=== PATIENT | female | born 1975 | race African-American/Black ===

== ENCOUNTER 2016-09-14 10:03 | Emergency (ER) | payer OTHER ==
[~2016-09-14] VITALS: Ht 162.6 cm; Wt 89.0 kg
[~2016-09-14 10:03] MED LIST: METH750T2 PO; TRAM50 PO
[2016-09-14 10:27] VITALS: BP 133/84; PULSE 62; RESP 16; TEMP 98.6; O2SAT 100
[2016-09-14] MEDS ORDERED: TIZA2CAP3 PO (11:08)
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
[2016-09-14] MEDS ORDERED: ORPHENADRINE INJ 60 MG/2 ML AMP IM ONE (11:30)
[2016-09-14] MEDS ORDERED: KETOROLAC TROMETHAMINE 60 MG/2 ML (IM) VIAL IM ONE (11:30)
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
[2016-09-14] MEDS ORDERED: DICL50TA PO (12:38)
== END 2016-09-14 12:47 | disposition home or self-care (01) ==
LOC: PHED 10:03 → PHEFT 12:47
DX: T14.8 Other injury of unspecified body region (principal); M54.2 Cervicalgia; M54.5 Low back pain; V49.40XA Driver injured in collision with unspecified motor vehicles in traffic accident, initial encounter
CPT/HCPCS: 72100; 96372; 99283; J1885; J2360

== ENCOUNTER 2017-03-17 10:42 | Emergency (ER) | payer OTHER ==
[~2017-03-17] VITALS: Ht 162.6 cm; Wt 93.0 kg
[~2017-03-17 10:42] MED LIST changes: +DICL50TA PO; -METH750T2 PO; +TIZA2CAP3 PO; -TRAM50 PO
[2017-03-17 10:43] VITALS: BP 114/72; PULSE 65; RESP 16; TEMP 97.7; O2SAT 98
[2017-03-17 11:33] LABS: BLOOD, URINE NEG (NEG); COMMENT (UR) CULT NOT INDICATED; CULTURE IF INDICATED CULT NOT INDICATED; GLUCOSE,URINE NEG (NEG); HYALINE CAST, URINE 2 /lpf (RARE); KETONE, URINE NEG (NEG); MUCUS URINE FEW /lpf (OCC); NITRITE,URINE NEG (NEG); PH, URINE 5.5 (5.0-8.5); SQUAMOUS EPITHELIAL CELL URINE 7 /hpf (0-5); URINE COLOR YELLOW (YELLW/STRAW)
--- NOTE | 2017-03-17 11:33 | PD ---
HPI Chief Complaint: Flank/Kidney Pain Time Seen by Provider: 11:26 Travel History International Travel<30 days: No Contact w/Intl Traveler<30days: No Traveled to known affect area: No History of Present Illness HPI The patient was seen and examined in the presence of the nurse. This patient complains of low back pain. She has chronic low back pain and has frequent pain spells of it. No recent injury or fever or urinary complaint. Denies hematuria. Severity is moderate. No alleviating factors. PFSH Past Medical History Hx Anticoagulant Therapy: No Asthma: Yes Blood Disorders: No Anxiety: No Depression: No Heart Rhythm Problems: No Cancer: No Cardiac Catheterization: No Cardiovascular Problems: No High Cholesterol: Yes Chemotherapy: No Chest Pain: Yes Congestive Heart Failure: No COPD: No Cerebrovascular Accident: No Diabetes: No Diminished Hearing: No Endocrine: Yes Gastrointestinal Disorders: Yes (BARIATRIC SX) Genitourinary: Yes (KIDNEY STONES) Hepatitis: No Hiatal Hernia: No Hypertension: Yes Immune Disorder: No Musculoskeletal: No Neurologic: No Psychiatric: No Reproductive: Yes (PELVIC PAIN) Respiratory: No Immunizations Current: No Radiation Therapy: No Sleep Apnea: No Thyroid Disease: No ?: Not Menopausal: Yes : 2 Para: 2 Miscarriage: 0 : 0 Dilation and Curettage (D&C): Yes Past Surgical History Abdominal Surgery: Yes (GASTRIC BYPASS, ) AICD: No Appendectomy: Yes (2004) Section: Yes (X1) Coronary Artery Bypass Graft: No Gynecologic Surgery: Yes (C SECTION, LAPAROSCOPY/ ABLATION) Hysterectomy: Yes Joint Replacement: No Pacemaker: No Other Surgery: Yes (LASH) Social History Alcohol Use: Yes (OCASSIONALLY) Tobacco Use: No Substance Use: No Allergies-Medications (Allergen,Severity, Reaction): Coded Allergies: No Known Allergies (Verified , 03/17/17) Reported Meds & Prescriptions Reported Meds & Active Scripts Active No Active Prescriptions or Reported Medications Review of Systems General / Constitutional: No: Fever Eyes: No: Visual changes HENT: No: Headaches Cardiovascular: No: Chest Pain or Discomfort Respiratory: No: Shortness of Breath Gastrointestinal: No: Abdominal Pain Genitourinary: No: Dysuria Musculoskeletal: Positive: Pain Skin: No Rash Neurologic: No: Weakness Psychiatric: No: Depression Endocrine: No: Polydipsia Hematologic/Lymphatic: No: Easy Bruising Physical Exam Narrative GENERAL: Well-nourished, well-developed patient with low back pain SKIN: Focused skin assessment reveals no rash and nodules. Skin is Warm and dry. HEAD: Atraumatic. Normocephalic. EYES: Pupils equal and round. No scleral icterus. No injection or drainage. ENT: No nasal bleeding or discharge. Mucous membranes pink and moist. NECK: Trachea midline. No JVD. CARDIOVASCULAR: Regular rate and rhythm. No murmur appreciated. RESPIRATORY: No accessory muscle use. Clear to auscultation. Breath sounds equal bilaterally. GASTROINTESTINAL: Abdomen soft, non-tender, nondistended. Hepatic and splenic margins not palpable. MUSCULOSKELETAL: No obvious deformities. No clubbing. No cyanosis. No edema. Patient has some low midline back tenderness and tenderness in the musculature to either side of the spine. No CVA tenderness. NEUROLOGICAL: Awake and alert. No obvious cranial nerve deficits. Motor grossly within normal limits. Normal speech. PSYCHIATRIC: Appropriate mood and affect; insight and judgment normal. Data Data Last Documented VS Vital Signs Date Time Temp Pulse Resp B/P (MAP) Pulse Ox O2 Delivery O2 Flow Rate FiO2 03/17/17 10:43 97.7 65 16 114/72 (86) 98 Room Air Orders Orders Urinalysis - C+S If Indicated (03/17/17 10:55) Complete Blood Count With Diff (03/17/17 10:55) Comprehensive Metabolic Panel (03/17/17 10:55) Labs Laboratory Tests Test 03/17/17 11:10 White Blood Count 7.0 TH/MM3 Red Blood Count 4.41 MIL/MM3 Hemoglobin 13.3 GM/DL Hematocrit 41.1 % Mean Corpuscular Volume 93.2 FL Mean Corpuscular Hemoglobin 30.2 PG Mean Corpuscular Hemoglobin Concent 32.4 % Red Cell Distribution Width 14.0 % Platelet Count 274 TH/MM3 Mean Platelet Volume 8.2 FL Neutrophils (%) (Auto) 61.8 % Lymphocytes (%) (Auto) 29.8 % Monocytes (%) (Auto) 7.2 % Eosinophils (%) (Auto) 0.5 % Basophils (%) (Auto) 0.7 % Neutrophils # (Auto) 4.3 TH/MM3 Lymphocytes # (Auto) 2.1 TH/MM3 Monocytes # (Auto) 0.5 TH/MM3 Eosinophils # (Auto) 0.0 TH/MM3 Basophils # (Auto) 0.0 TH/MM3 CBC Comment DIFF FINAL Differential Comment Urine Color YELLOW Urine Turbidity HAZY Urine pH 5.5 Urine Specific [place] 1.040 Urine Protein TRACE mg/dL Urine Glucose (UA) NEG mg/dL Urine Ketones NEG mg/dL Urine Occult Blood NEG Urine Nitrite NEG Urine Bilirubin NEG Urine Urobilinogen 2.0 MG/DL Urine Leukocyte Esterase TRACE Urine RBC 2 /hpf Urine WBC 2 /hpf Urine Squamous Epithelial Cells 7 /hpf Urine Hyaline Casts 2 /lpf Urine Mucus FEW /lpf Microscopic Urinalysis Comment CULT NOT INDICATED Blood Urea Nitrogen 22 MG/DL Creatinine 0.52 MG/DL Random Glucose 76 MG/DL Total Protein 7.0 GM/DL Albumin 3.3 GM/DL Calcium Level 8.9 MG/DL Alkaline Phosphatase 44 U/L Aspartate Amino Transf (AST/SGOT) 11 U/L Alanine Aminotransferase (ALT/SGPT) 18 U/L Total Bilirubin 0.6 MG/DL Sodium Level 144 MEQ/L Potassium Level 4.0 MEQ/L Chloride Level 107 MEQ/L Carbon Dioxide Level 30.1 MEQ/L Anion Gap 7 MEQ/L Estimat Glomerular Filtration Rate 156 ML/MIN [facility] Medical Decision Making Medical Screen Exam Complete: Yes Emergency Medical Condition: Yes Medical Record Reviewed: Yes Differential Diagnosis Exacerbation of chronic low back pain, pyelonephritis, lumbar strain, sciatica Narrative Course I have reviewed the patient's electronic medical record. Patient is a frequent visitor to the ER for pain complaints IV placed CBC is normal Metabolic profile is normal LFTs are normal Urinalysis is clean Work appear negative. Etiology of her low back pain is unclear but I suspect musculoskeletal cause It's not consistent with renal stone Tramadol written for short term relief and primary care follow-up recommended Diagnosis Primary Impression: Low back pain Qualified Codes: M54.5 - Low back pain Additional Impression: Flank pain, acute Additional Instructions: The patient was advised to follow up with their physician and return if they worsen. The patient was warned about potential sedation for the medications they will receive on prescription. Med/Other Pt SpecificInfo: Prescription(s) given Scripts Tramadol (Tramadol) 50 Mg Tab 50 MG PO Q6H Y for PAIN, #20 TAB 0 Refills Prov: Julio Rodas MD 8/22/17 Disposition: 01 DISCHARGE HOME Condition: Stable Julio Rodas MD Mar 17, 2017 11:33
[2017-03-17 11:40] LABS: AUTOMATED NEUTROPHIL # 4.3 TH/MM3 (1.8-7.7); BASOPHIL % 0.7 % (0.0-2.0); EOSINOPHIL % 0.5 % (0.0-4.0); HEMATOCRIT 41.1 % (35.0-46.0); HEMO FLAGS DIFF FINAL; LYMPH % 29.8 % (9.0-44.0); LYMPHOCYTE # 2.1 TH/MM3 (1.0-4.8); MEAN CELL VOLUME 93.2 FL (80.0-100.0); MEAN CORPUSCULAR HEMOGLOBIN 30.2 PG (27.0-34.0); MEAN CORPUSCULAR HGB CONC 32.4 % (32.0-36.0); MONO % 7.2 % (0.0-8.0); NEUT % 61.8 % (16.0-70.0); PLATELET COUNT 274 TH/MM3 (150-450); RED BLOOD COUNT 4.41 MIL/MM3 (4.00-5.30)
[2017-03-17 11:48] LABS: ANION GAP 7 MEQ/L (5-15); AST (GOT) 11 U/L (15-37); BICARBONATE 30.1 MEQ/L (21.0-32.0); BLOOD UREA NITROGEN 22 MG/DL (7-18); CHLORIDE 107 MEQ/L (98-107); GLOMERULAR FILTRATION RATE 156 ML/MIN (>89); SODIUM (NA) 144 MEQ/L (136-145)
[2017-03-17 11:51] LABS: ALKALINE PHOSPHATASE 44 U/L (45-117); ALT (GPT) 18 U/L (10-53); TOTAL BILIRUBIN ADULT 0.6 MG/DL (0.2-1.0)
[2017-03-17] MEDS ORDERED: TRAM50TA PO (12:50)
== END 2017-03-17 13:08 | disposition home or self-care (01) ==
LOC: NEPD 10:42
DX: M54.5 Low back pain (principal); R10.30 Lower abdominal pain, unspecified; J45.909 Unspecified asthma, uncomplicated; E78.00 Pure hypercholesterolemia, unspecified; Z98.84 Bariatric surgery status
CPT/HCPCS: 80053; 81001; 85025; 99283

== ENCOUNTER 2017-07-24 11:20 | Observation (INO) | payer OTHER ==
[~2017-07-24] VITALS: Ht 162.6 cm; Wt 95.5 kg
[~2017-07-24 11:20] MED LIST changes: -DICL50TA PO; -TIZA2CAP3 PO; +TRAM50TA PO
[2017-07-24 11:22] VITALS: BP 164/91; PULSE 65; RESP 18; TEMP 98.1; O2SAT 100
[2017-07-24 11:54] LABS: AUTOMATED NEUTROPHIL # 3.6 TH/MM3 (1.8-7.7); BASOPHIL % 0.7 % (0.0-2.0); EOSINOPHIL % 0.3 % (0.0-4.0); HEMATOCRIT 41.4 % (35.0-46.0); HEMOGLOBIN 13.6 GM/DL (11.6-15.3); LYMPHOCYTE # 1.6 TH/MM3 (1.0-4.8); MEAN CELL VOLUME 93.6 FL (80.0-100.0); MEAN CORPUSCULAR HEMOGLOBIN 30.8 PG (27.0-34.0); MEAN CORPUSCULAR HGB CONC 32.9 % (32.0-36.0); MONO % 5.6 % (0.0-8.0); MONOCYTE # 0.3 TH/MM3 (0-0.9); NEUT % 65.4 % (16.0-70.0); PLATELET COUNT 240 TH/MM3 (150-450); RED BLOOD COUNT 4.42 MIL/MM3 (4.00-5.30); RED CELL DISTRIBUTION WIDTH 13.9 % (11.6-17.2); WHITE BLOOD COUNT 5.5 TH/MM3 (4.0-11.0)
[2017-07-24 12:01] LABS: INTERNATIONAL NORMALIZED RATIO 1.1 RATIO; PROTHROMBIN TIME - PATIENT 11.1 SEC (9.8-11.6)
[2017-07-24 12:08] LABS: ALBUMIN 3.4 GM/DL (3.4-5.0); ALT (GPT) 20 U/L (10-53); AST (GOT) 15 U/L (15-37); BLOOD UREA NITROGEN 16 MG/DL (7-18); CALCIUM 8.5 MG/DL (8.5-10.1); CHLORIDE 108 MEQ/L (98-107); CREATININE 0.57 MG/DL (0.50-1.00); GLOMERULAR FILTRATION RATE 141 ML/MIN (>89); GLUCOSE,RANDOM 82 MG/DL (74-106); SODIUM (NA) 142 MEQ/L (136-145)
[2017-07-24 12:12] LABS: ALKALINE PHOSPHATASE 46 U/L (45-117); TOTAL BILIRUBIN ADULT 0.7 MG/DL (0.2-1.0); TOTAL PROTEIN 7.4 GM/DL (6.4-8.2); TROPONIN I LESS THAN 0.02 NG/ML (0.02-0.05)
--- NOTE | 2017-07-24 12:22 | RADRPT ---
EXAM DATE/TIME: 07/24/2017 11:52 [facility] COMPARISON: No previous studies available for comparison. INDICATIONS : Chest pain. MEDICAL HISTORY : None. SURGICAL HISTORY : Gastric bypass. ENCOUNTER: Initial ACUITY: 1 day PAIN SCORE: 7/10 LOCATION: Left upper chest FINDINGS: PA and lateral views of the chest demonstrate the lungs to be symmetrically aerated without evidence of mass, infiltrate or effusion. The cardiomediastinal contours are unremarkable. Osseous structure s are intact. CONCLUSION: 1. No acute cardiopulmonary disease. Mark Slater MD on July 24, 2017 at 12:21 Board Certified Radiologist. This report was verified electronically.
[2017-07-24 13:20] VITALS: BP 132/80; PULSE 59; RESP 18; O2SAT 100
[2017-07-24] MEDS ORDERED: NITROGLYCERIN 0.4 MG SL 25 TABS/BTL SL ONE (13:30)
[2017-07-24] MEDS ORDERED: ASPIRIN 325 MG TAB PO ONE (13:30)
[2017-07-24] MEDS ORDERED: GABA300C5 PO (13:49)
[2017-07-24 14:00] VITALS: BP 158/76; PULSE 68; RESP 16; O2SAT 99
--- NOTE | 2017-07-24 14:08 | PD ---
HPI Chief Complaint: Chest Pain Time Seen by Provider: 13:07 Travel History International Travel<30 days: No Contact w/Intl Traveler<30days: No Traveled to known affect area: No History of Present Illness HPI 41-year-old female that presents to the ED for evaluation of chest pain. Patient states that she's been having left-sided chest pain since 9:00 this morning. Per patient is constant and doesn't go away. She denies any history of heart disease in herself or her family. She does have an old history of smoking as well as hypertension and diabetes which was for the most part improved after having bariatric surgery. This happened 2012. She states that she's been having a lot of stress at work and she doesn't know this is related. Per patient the pain is sharp and pressure-like. Pain per patient is 7 out of 10. She didn't take anything for this. She does take naproxen OTC as needed. She denies any abdominal pain. No nausea or vomiting. No bowel movement or urinary issues. She states that she had a stress test sometime at the beginning of the year and she states that the told her that she was negative. She has not had any follow-up since. She has no allergies to medication. No other medical issues at this time. No fevers chills or sweats. No cough or runny nose. PFSH Past Medical History Hx Anticoagulant Therapy: No Asthma: Yes Blood Disorders: No Anxiety: No Depression: No Heart Rhythm Problems: No Cancer: No Cardiac Catheterization: No Cardiovascular Problems: No High Cholesterol: Yes Chemotherapy: No Chest Pain: Yes Congestive Heart Failure: No COPD: No Cerebrovascular Accident: No Diabetes: No Diminished Hearing: No Endocrine: Yes Gastrointestinal Disorders: Yes (BARIATRIC SX) Genitourinary: Yes (KIDNEY STONES) Hepatitis: No Hiatal Hernia: No Hypertension: Yes Immune Disorder: No Musculoskeletal: No Neurologic: No Psychiatric: No Reproductive: Yes Respiratory: No Immunizations Current: No Radiation Therapy: No Sleep Apnea: No Thyroid Disease: No ?: Not Menopausal: Yes : 2 Para: 2 Miscarriage: 0 : 0 Dilation and Curettage (D&C): Yes Past Surgical History Abdominal Surgery: Yes (GASTRIC BYPASS, ) AICD: No Appendectomy: Yes (2004) Section: Yes (X1) Coronary Artery Bypass Graft: No Gynecologic Surgery: Yes (C SECTION, LAPAROSCOPY/ ABLATION) Hysterectomy: Yes Joint Replacement: No Pacemaker: No Other Surgery: Yes (LASH) Social History Alcohol Use: Yes (OCASSIONALLY) Tobacco Use: Yes (cigars ) Substance Use: No Allergies-Medications (Allergen,Severity, Reaction): Coded Allergies: No Known Allergies (Verified , 03/17/17) Reported Meds & Prescriptions Reported Meds & Active Scripts Active Reported Gabapentin 300 Mg Cap 300 Mg PO HS Review of Systems Except as stated in HPI: all other systems reviewed are Neg Physical Exam Narrative GENERAL: SKIN: Warm and dry. HEAD: Atraumatic. Normocephalic. EYES: Pupils equal and round. No scleral icterus. No injection or drainage. ENT: No nasal bleeding or discharge. Mucous membranes pink and moist. Tongue is midline. No uvula deviation. NECK: Trachea midline. No JVD. CARDIOVASCULAR: Regular rate and rhythm. No murmurs, S3, S4. Chest pain is not reproducible with touch. RESPIRATORY: No accessory muscle use. Clear to auscultation. Breath sounds equal bilaterally. GASTROINTESTINAL: Abdomen soft, non-tender, nondistended. Hepatic and splenic margins not palpable. MUSCULOSKELETAL: Extremities without clubbing, cyanosis, or edema. No obvious deformities. Full range of motion of the upper and lower extremities bilaterally. 2+ pulses bilaterally. NEUROLOGICAL: Awake and alert. No obvious cranial nerve deficits. Motor grossly within normal limits. Five out of 5 muscle strength in the arms and legs. Normal speech. PSYCHIATRIC: Appropriate mood and affect; insight and judgment normal. Data Data Last Documented VS Vital Signs Date Time Temp Pulse Resp B/P (MAP) Pulse Ox O2 Delivery O2 Flow Rate FiO2 07/24/17 14:00 68 16 158/76 (103) 99 Room Air 07/24/17 11:22 98.1 Orders Orders Electrocardiogram (07/24/17 11:27) Ckmb (Isoenzyme) Profile (07/24/17 11:27) Complete Blood Count With Diff (07/24/17 11:27) Comprehensive Metabolic Panel (07/24/17 11:27) Magnesium (Mg) (07/24/17 11:27) Prothrombin Time / Inr (Pt) (07/24/17 11:27) Act Partial Throm Time (Ptt) (07/24/17 11:27) Troponin I (07/24/17 11:27) Chest, Pa & Lat (07/24/17 11:27) Lipase (07/24/17 13:23) Aspirin (Aspirin) (07/24/17 13:30) Nitroglycerin Sl (Nitrostat Sl) (07/24/17 13:30) Admit Order (Ed Use Only) (07/24/17 14:02) Labs Laboratory Tests Test 07/24/17 11:41 White Blood Count 5.5 TH/MM3 Red Blood Count 4.42 MIL/MM3 Hemoglobin 13.6 GM/DL Hematocrit 41.4 % Mean Corpuscular Volume 93.6 FL Mean Corpuscular Hemoglobin 30.8 PG Mean Corpuscular Hemoglobin Concent 32.9 % Red Cell Distribution Width 13.9 % Platelet Count 240 TH/MM3 Mean Platelet Volume 8.0 FL Neutrophils (%) (Auto) 65.4 % Lymphocytes (%) (Auto) 28.0 % Monocytes (%) (Auto) 5.6 % Eosinophils (%) (Auto) 0.3 % Basophils (%) (Auto) 0.7 % Neutrophils # (Auto) 3.6 TH/MM3 Lymphocytes # (Auto) 1.6 TH/MM3 Monocytes # (Auto) 0.3 TH/MM3 Eosinophils # (Auto) 0.0 TH/MM3 Basophils # (Auto) 0.0 TH/MM3 CBC Comment DIFF FINAL Differential Comment Prothrombin Time 11.1 SEC Prothromb Time International Ratio 1.1 RATIO Activated Partial Thromboplast Time 26.7 SEC Blood Urea Nitrogen 16 MG/DL Creatinine 0.57 MG/DL Random Glucose 82 MG/DL Total Protein 7.4 GM/DL Albumin 3.4 GM/DL Calcium Level 8.5 MG/DL Magnesium Level 2.0 MG/DL Alkaline Phosphatase 46 U/L Aspartate Amino Transf (AST/SGOT) 15 U/L Alanine Aminotransferase (ALT/SGPT) 20 U/L Total Bilirubin 0.7 MG/DL Sodium Level 142 MEQ/L Potassium Level 3.7 MEQ/L Chloride Level 108 MEQ/L Carbon Dioxide Level 26.0 MEQ/L Anion Gap 8 MEQ/L Estimat Glomerular Filtration Rate 141 ML/MIN Total Creatine Kinase 83 U/L Troponin I LESS THAN 0.02 NG/ML MDM Medical Decision Making Medical Screen Exam Complete: Yes Emergency Medical Condition: Yes Medical Record Reviewed: Yes Interpretation(s) CBC & BMP Diagram 07/24/17 11:41 Total Protein 7.4, Albumin 3.4, Calcium Level 8.5, Magnesium Level 2.0, Alkaline Phosphatase 46, Aspartate Amino Transf (AST/SGOT) 15, Alanine Aminotransferase (ALT/SGPT) 20, Total Bilirubin 0.7 Last Impressions Chest X-Ray 07/24/17 1127 Signed Impressions: Service Date/Time: Monday, July 24, 2017 11:52 - CONCLUSION: 1. No acute cardiopulmonary disease. Mark Slater MD Troponin and CK-MB negative. EKG showed sinus rhythm with no sign of acute ischemia and arrhythmia read by me and attending. Patient does appear to have incomplete RBBB. Differential Diagnosis Chest pain versus atypical chest pain versus ACS versus electrolyte abnormality versus angina versus anxiety Narrative Course 41-year-old female that presents to the ED for evaluation of chest pain. Patient was properly examined and was found to have signs and symptoms concerning for cardiac chest pain. Patient does not have many risk factors but she was given aspirin and nitroglycerin with relief of symptoms. Patient does have a history of old smoking as well as a history of hypertension and diabetes which has been under control since having a bariatric procedure. She does continue to complain of chest pain. Do not have any etiology for the chest pain. She does not appear to have any risk factors for PE including no recent travel or recent surgeries. Patient is not tachycardic and chest pain is not reproducible with touch. At this time I recommend admission for the chest pain center. This was discussed with my attending Dr. Renee who was made aware of findings risk factors and agrees with the patient admission to the chest pain center. Patient agrees with plan. Patient was admitted to the chest pain center. Diagnosis Primary Impression: Chest pain in adult Admitting Information Admitting Physician Requests: Observation Miki Acosta Jul 24, 2017 14:08
[2017-07-24] MEDS ORDERED: ACETAMINOPHEN 325 MG TAB PO ONE (14:30)
[2017-07-24] MEDS ORDERED: NITROGLYCERIN 0.4 MG SL 25 TABS/BTL SL PRN (14:45)
[2017-07-24] MEDS ORDERED: ONDANSETRON HCL 4 MG/2 ML VIAL IV PUSH PRN (14:45)
[2017-07-24] MEDS ORDERED: ACETAMINOPHEN 500 MG CPLT PO PRN (14:45)
[2017-07-24] MEDS ORDERED: SODIUM CHLORIDE 0.9% FLUSH 10 ML FLUSH IV FLUSH PRN (14:45)
[2017-07-24 15:00] VITALS: BP 123/79; PULSE 68; RESP 16; TEMP 97.8; O2SAT 100
[2017-07-24 15:50] VITALS: RESP 16
[2017-07-24 16:09] LABS: TROPONIN I LESS THAN 0.02 NG/ML (0.02-0.05)
[2017-07-24] MEDS ORDERED: SODIUM CHLORIDE 0.9% FLUSH 10 ML FLUSH IV FLUSH SCH (21:00)
[2017-07-25] MEDS ORDERED: ASPIRIN 325 MG TAB PO SCH (09:00)
--- NOTE | 2017-07-26 13:20 | EKG ---
Date Performed: 07/24/2017 Time Performed: 15:05:50 PTAGE: 41 years EKG: SINUS BRADYCARDIA INCOMPLETE RIGHT BUNDLE BRANCH BLOCK BORDERLINE ECG NO SIG CHANGE PREVIOUS TRACING : 07/24/2017 11.34 DOCTOR: Mitchel Sutton Interpretating Date/Time 07/26/2017 13:18:47
--- NOTE | 2017-07-26 13:23 | EKG ---
Date Performed: 07/24/2017 Time Performed: 11:34:15 PTAGE: 41 years EKG: SINUS BRADYCARDIA RIGHT BUNDLE BRANCH BLOCK ABNORMAL ECG NO CHANGE PREVIOUS TRACING : 10/28/2013 18.54 DOCTOR: Mitchel Sutton Interpretating Date/Time 07/26/2017 13:23:15
== END 2017-07-24 16:00 | disposition left against medical advice (07) ==
LOC: NEPE 11:20 → NEDA 14:03
PROVIDERS: ADMIT Internal Medicine Interventional Cardiology; ATTEND Internal Medicine Interventional Cardiology
DX: R07.89 Other chest pain (principal); I45.10 Unspecified right bundle-branch block; R94.31 Abnormal electrocardiogram [ECG] [EKG]; I10 Essential (primary) hypertension; E11.9 Type 2 diabetes mellitus without complications; J45.909 Unspecified asthma, uncomplicated; Z72.0 Tobacco use; Z87.442 Personal history of urinary calculi; Z98.84 Bariatric surgery status
CPT/HCPCS: 71020; 80053; 82550; 83690; 83735; 84484; 85025; 85610; 85730; 93005; 99285; G0378; 99284

== ENCOUNTER 2017-09-11 18:41 | Emergency (ER) | payer OTHER ==
[~2017-09-11] VITALS: Ht 165.1 cm; Wt 97.7 kg
[~2017-09-11 18:41] MED LIST changes: +GABA300C5 PO; -TRAM50TA PO
[2017-09-11 19:25] VITALS: BP 141/75; PULSE 65; RESP 18; TEMP 98.2; O2SAT 99
[2017-09-11] MEDS ORDERED: KETOROLAC TROMETHAMINE 30 MG/ML (IVP) VIAL IV PUSH ONE (19:30)
[2017-09-11] MEDS ORDERED: SODIUM CHLOR 0.9% 1000 ML INJ 1,000 ML IV ONE (19:30)
[2017-09-11] MEDS ORDERED: FAMOTIDINE 20 MG/2 ML VIAL IV PUSH SCH (19:30)
[2017-09-11 19:53] LABS: AUTOMATED NEUTROPHIL # 3.1 TH/MM3 (1.8-7.7); BASOPHIL % 0.8 % (0.0-2.0); EOSINOPHIL # 0.1 TH/MM3 (0-0.4); EOSINOPHIL % 1.1 % (0.0-4.0); HEMATOCRIT 41.8 % (35.0-46.0); LYMPH % 39.9 % (9.0-44.0); LYMPHOCYTE # 2.4 TH/MM3 (1.0-4.8); MEAN CELL VOLUME 93.4 FL (80.0-100.0); MEAN CORPUSCULAR HEMOGLOBIN 31.2 PG (27.0-34.0); MEAN CORPUSCULAR HGB CONC 33.4 % (32.0-36.0); MONO % 6.7 % (0.0-8.0); MONOCYTE # 0.4 TH/MM3 (0-0.9); NEUT % 51.5 % (16.0-70.0); PLATELET COUNT 224 TH/MM3 (150-450); RED BLOOD COUNT 4.47 MIL/MM3 (4.00-5.30)
[2017-09-11 19:55] LABS: BILIRUBIN, URINE NEG (NEG); BLOOD, URINE NEG (NEG); GLUCOSE,URINE NEG (NEG); KETONE, URINE 10 mg/dL (NEG); MUCUS URINE FEW /lpf (OCC); NITRITE,URINE NEG (NEG); SQUAMOUS EPITHELIAL CELL URINE 5 /hpf (0-5); URINE COLOR YELLOW (YELLW/STRAW); URINE LEUKOCYTE ESTERASE NEG (NEG)
[2017-09-11 20:04] LABS: ALBUMIN 3.6 GM/DL (3.4-5.0); AST (GOT) 14 U/L (15-37); BLOOD UREA NITROGEN 12 MG/DL (7-18); CALCIUM 8.9 MG/DL (8.5-10.1); CHLORIDE 105 MEQ/L (98-107); CREATININE 0.52 MG/DL (0.50-1.00); GLOMERULAR FILTRATION RATE 156 ML/MIN (>89); GLUCOSE,RANDOM 81 MG/DL (74-106); SODIUM (NA) 142 MEQ/L (136-145)
[2017-09-11 20:05] LABS: ALT (GPT) 19 U/L (10-53)
[2017-09-11 20:07] LABS: ALKALINE PHOSPHATASE 48 U/L (45-117); TOTAL BILIRUBIN ADULT 0.7 MG/DL (0.2-1.0); TOTAL PROTEIN 7.4 GM/DL (6.4-8.2)
--- NOTE | 2017-09-11 22:38 | RADRPT ---
EXAM DATE/TIME: 09/11/2017 22:18 [facility] COMPARISON: No previous studies available for comparison. INDICATIONS : Back pain and hematuria; possible renal calculi. ORAL CONTRAST: No oral contrast ingested. RADIATION DOSE: 16.60 CTDIvol (mGy) MEDICAL HISTORY : Hypertension. SURGICAL HISTORY : Gastric bypass. Hysterectomy. ENCOUNTER: Initial ACUITY: 1 day PAIN SCALE: 6/10 LOCATION: Bilateral flank TECHNIQUE: Volumetric scanning of the abdomen and pelvis was performed. Using automated exposure control and ad justment of the mA and/or kV according to patient size, radiation dose was kept as low as reasonably achievable to obtain optimal diagnostic quality images. DICOM format image data is available electro nically for review and comparison. FINDINGS: Lung bases are clear. No acute findings in the liver, spleen, adrenalsor pancreas. Tiny nonobstructin g calculus upper pole left kidney. No hydronephrosis or evidence for obstructive uropathy. No bladder calculi. Previous gastric bypass surgery and hysterectomy. No calcified gallstones or biliary ductal dilatation. Mild constipation. Mild anasarca. No acute bony abnormalities. CONCLUSION: 1. No acute findings. Mild constipation. Tiny 1 mm nonobstructing calculus upper pole left kidney. No hydronephrosis or evidence for obstructive uropathy. Don Solitario MD on September 11, 2017 at 22:32 Board Certified Radiologist. This report was verified electronically.
--- NOTE | 2017-09-11 22:46 | RADRPT ---
EXAM DATE/TIME: 09/11/2017 22:18 [facility] COMPARISON: No previous studies available for comparison. INDICATIONS : Back pain. RADIATION DOSE: CTDIvol (mGy) ; Reconstructed from previous dataset, no dose MEDICAL HISTORY : Hypertension. SURGICAL HISTORY : Gastric bypass. Hysterectomy. ENCOUNTER: Initial ACUITY: 1 day PAIN SCALE: 6/10 LOCATION: lower back TECHNIQUE: Volumetric scanning of the lumbar spine was performed. Multiplanar reconstructions in the sagittal, coronal and oblique axial planes were performed. Using automated exposure control and adjustment of the mA and/or kV according to patient size, radiation dose was kept as low as reasonably achievable t o obtain optimal diagnostic quality images. DICOM format image data is available electronically for review and comparison. FINDINGS: No acute fracture or spondylolisthesis. Mild central canal stenosis at L4-5 and 5-S1 secondary to dis c bulge and some facet arthropathy. CONCLUSION: 1. No acute findings. Moderate facet arthropathy in the lower lumbar spine. Mild degenerative disc di sease. Mild canal stenosis at the lateral recesses at L4-5-S1. Don Solitario MD on September 11, 2017 at 22:41 Board Certified Radiologist. This report was verified electronically.
[2017-09-11] MEDS ORDERED: oxyCODONE/ACETAMINOPHEN 5 MG/325 MG TAB PO ONE (23:45)
--- NOTE | 2017-09-11 23:45 | PD ---
HPI Chief Complaint: Flank/Kidney Pain Time Seen by Provider: 19:19 Travel History International Travel<30 days: No Contact w/Intl Traveler<30days: No Traveled to known affect area: No History of Present Illness HPI Patient's reporting right-sided parathoracic tenderness radiating around to her right side it started early this morning and is progressively getting worse. She says it is not responding to [id number] medications. She says she is history of kidney stones. 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 She is not seen another doctor for this she is not having nausea she not having vomiting she is not diaphoretic she is just having localized back pain will right-sided parathoracic radiating around to the right rib no dysuria no change in urine.. She has not seen another MD FOR THIS COMPLAINT. PFSH Past Medical History Hx Anticoagulant Therapy: No Asthma: Yes Blood Disorders: No Anxiety: No Depression: No Heart Rhythm Problems: No Cancer: No Cardiac Catheterization: No Cardiovascular Problems: No High Cholesterol: Yes Chemotherapy: No Chest Pain: Yes Congestive Heart Failure: No COPD: No Cerebrovascular Accident: No Diabetes: No Diminished Hearing: No Endocrine: Yes Gastrointestinal Disorders: Yes (BARIATRIC SX) Genitourinary: Yes (KIDNEY STONES) Hepatitis: No Hiatal Hernia: No Hypertension: Yes Immune Disorder: No Musculoskeletal: No Neurologic: No Psychiatric: No Reproductive: Yes Respiratory: No Immunizations Current: No Radiation Therapy: No Sleep Apnea: No Thyroid Disease: No ?: Not Menopausal: Yes : 2 Para: 2 Miscarriage: 0 : 0 Dilation and Curettage (D&C): Yes Past Surgical History Abdominal Surgery: Yes (GASTRIC BYPASS, ) AICD: No Appendectomy: Yes (2004) Section: Yes (X1) Coronary Artery Bypass Graft: No Gynecologic Surgery: Yes (C SECTION, LAPAROSCOPY/ ABLATION) Hysterectomy: Yes Joint Replacement: No Pacemaker: No Other Surgery: Yes (LAS) Social History Alcohol Use: Yes (OCASSIONALLY) Tobacco Use: Yes (cigars ) Substance Use: No Allergies-Medications (Allergen,Severity, Reaction): Coded Allergies: No Known Allergies (Verified Allergy, Unknown, 09/11/17) Reported Meds & Prescriptions Reported Meds & Active Scripts Active Valium (Diazepam) 5 Mg Tab 5 Mg PO BID PRN Ibuprofen 600 Mg Tab 600 Mg PO Q6H PRN Reported Gabapentin 300 Mg Cap 300 Mg PO HS Review of Systems Except as stated in HPI: all other systems reviewed are Neg Physical Exam Narrative GENERAL: mild distress SKIN: Warm and dry. HEAD: Atraumatic. Normocephalic. EYES: Pupils equal and round. No scleral icterus. No injection or drainage. ENT: No nasal bleeding or discharge. Mucous membranes pink and moist. NECK: Trachea midline. No JVD. CARDIOVASCULAR: Regular rate and rhythm. RESPIRATORY: No accessory muscle use. Clear to auscultation. Breath sounds equal bilaterally. GASTROINTESTINAL: Abdomen soft, non-tender, nondistended. Hepatic and splenic margins not palpable. MUSCULOSKELETAL: Extremities without clubbing, cyanosis, or edema. No obvious deformities. BACK prarthoracic pain , right side NEUROLOGICAL: Awake and alert. No obvious cranial nerve deficits. Motor grossly within normal limits. Five out of 5 muscle strength in the arms and legs. Normal speech. PSYCHIATRIC: Appropriate mood and affect; insight and judgment normal. Data Data Last Documented VS Vital Signs Date Time Temp Pulse Resp B/P (MAP) Pulse Ox O2 Delivery O2 Flow Rate FiO2 09/11/17 19:25 98.2 65 18 141/75 (97) 99 Room Air Orders Orders Complete Blood Count With Diff (09/11/17 19:24) Comprehensive Metabolic Panel (09/11/17 19:24) Lipase (09/11/17 19:24) Urinalysis - C+S If Indicated (09/11/17 19:24) Ed Urine Pregnancytest Poc (09/11/17 19:24) Ketorolac Inj (Toradol Inj) (09/11/17 19:30) Famotidine Inj (Pepcid Inj) (09/11/17 19:30) Sodium Chlor 0.9% 1000 Ml Inj (Ns 1000 M (09/11/17 19:30) Ct Abd/Pel W/O Iv Contrast (09/11/17 ) Ct Lumb Spine W/O Contrast (09/11/17 ) Oxycodone-Acetamin 5-325 Mg (Percocet (09/11/17 23:45) Ed Discharge Order (09/12/17 00:08) Labs Laboratory Tests Test 09/11/17 19:40 White Blood Count 6.0 TH/MM3 Red Blood Count 4.47 MIL/MM3 Hemoglobin 14.0 GM/DL Hematocrit 41.8 % Mean Corpuscular Volume 93.4 FL Mean Corpuscular Hemoglobin 31.2 PG Mean Corpuscular Hemoglobin Concent 33.4 % Red Cell Distribution Width 14.0 % Platelet Count 224 TH/MM3 Mean Platelet Volume 8.0 FL Neutrophils (%) (Auto) 51.5 % Lymphocytes (%) (Auto) 39.9 % Monocytes (%) (Auto) 6.7 % Eosinophils (%) (Auto) 1.1 % Basophils (%) (Auto) 0.8 % Neutrophils # (Auto) 3.1 TH/MM3 Lymphocytes # (Auto) 2.4 TH/MM3 Monocytes # (Auto) 0.4 TH/MM3 Eosinophils # (Auto) 0.1 TH/MM3 Basophils # (Auto) 0.0 TH/MM3 CBC Comment DIFF FINAL Differential Comment Urine Color YELLOW Urine Turbidity CLEAR Urine pH 6.0 Urine Specific [place] 1.021 Urine Protein NEG mg/dL Urine Glucose (UA) NEG mg/dL Urine Ketones 10 mg/dL Urine Occult Blood NEG Urine Nitrite NEG Urine Bilirubin NEG Urine Urobilinogen LESS THAN 2.0 MG/DL Urine Leukocyte Esterase NEG Urine WBC 1 /hpf Urine Squamous Epithelial Cells 5 /hpf Urine Mucus FEW /lpf Microscopic Urinalysis Comment CULT NOT INDICATED Blood Urea Nitrogen 12 MG/DL Creatinine 0.52 MG/DL Random Glucose 81 MG/DL Total Protein 7.4 GM/DL Albumin 3.6 GM/DL Calcium Level 8.9 MG/DL Alkaline Phosphatase 48 U/L Aspartate Amino Transf (AST/SGOT) 14 U/L Alanine Aminotransferase (ALT/SGPT) 19 U/L Total Bilirubin 0.7 MG/DL Sodium Level 142 MEQ/L Potassium Level 3.5 MEQ/L Chloride Level 105 MEQ/L Carbon Dioxide Level 29.0 MEQ/L Anion Gap 8 MEQ/L Estimat Glomerular Filtration Rate 156 ML/MIN Lipase 115 U/L [facility] Medical Decision Making Medical Screen Exam Complete: Yes Emergency Medical Condition: Yes Differential Diagnosis BACK PAIN VS KIDNEY STONE OR GB DISEASE, ALL PRIOR STUDIES WERE NEGATIVE FOR SEEMINGLY SAME COMPLAINT ON PRIOR VISITS Narrative Course CT LUMBRAL spine AND renal NORMAL pt given Toradol which she reports did pot help at all. pt given 1 po pain pill and discharged with motrin and few valium for muscle spasm Diagnosis Primary Impression: Muscle strain Additional Impression: Back pain Qualified Codes: M54.5 - Low back pain Patient Instructions: Acute Low Back Pain (ED), General Instructions Scripts Diazepam (Valium) 5 Mg Tab 5 MG PO BID Y for MUSCLE SPASM, #14 TAB 0 Refills Prov: Nacho Chaudhry MD 09/11/17 Ibuprofen (Ibuprofen) 600 Mg Tab 600 MG PO Q6H Y for Pain/Inflammation, #40 TAB 0 Refills Prov: Nacho Chaudhry MD 09/11/17 Disposition: 01 DISCHARGE HOME Condition: Good Nacho Chaudhry MD Sep 11, 2017 23:45
[2017-09-11] MEDS ORDERED: DIAZ5 PO (23:47)
[2017-09-11] MEDS ORDERED: IBUP-232 PO (23:47)
== END 2017-09-12 01:13 | disposition home or self-care (01) ==
LOC: NEPE 18:41
DX: S39.012A Strain of muscle, fascia and tendon of lower back, initial encounter (principal); J45.909 Unspecified asthma, uncomplicated; E78.00 Pure hypercholesterolemia, unspecified; I10 Essential (primary) hypertension; Z87.442 Personal history of urinary calculi; Z98.84 Bariatric surgery status; Z72.0 Tobacco use
CPT/HCPCS: 72131; 74176; 80053; 81001; 83690; 85025; 96374; 96375; 99285; J1885; J7030